=== PATIENT | female | born 1990 | race Caucasian/White ===

== ENCOUNTER → 2024-06-28 | Emergency (ER) | payer OTHER ==
[~2024-06-28] VITALS: Ht 165.1 cm; Wt 72.6 kg
[~2024-06-28] MED LIST: KETOROLAC TROMETHAMINE 15 MG/ML VIAL ONE
[2024-06-28] MEDS: KETOROLAC TROMETHAMINE 15 MG/ML VIAL IM ONE (19:44)
[2024-06-28 20:49] VITALS: BP 110/70; TEMP 98; O2SAT 99
== END | disposition home or self-care (01) ==
LOC: ER 18:23
DX: S00.81XA Abrasion of other part of head, initial encounter (principal); M25.551 Pain in right hip; M79.641 Pain in right hand; R07.81 Pleurodynia; V43.52XA Car driver injured in collision with other type car in traffic accident, initial encounter; Y93.89 Activity, other specified; Y92.488 Other paved roadways as the place of occurrence of the external cause; Y99.8 Other external cause status
CPT/HCPCS: 29125; 71111; 72170; 73130; 96372; 99284; J1885